=== PATIENT | male | born 1975 | race Caucasian/White ===

== ENCOUNTER 2020-03-17 08:00 | Outpatient (CLI) | payer OTHER ==
[2020-03-17 18:27] LABS: BASOPHILS % (AUTO) 0.5 %; EOSINOPHILS # (AUTO) 0.5 10^3/uL (0.0-0.7); HGB - HEMOGLOBIN 15.4 g/dL (14.0-18.0); LYMPHOCYTES # (AUTO) 2.1 10^3/uL (1.5-3.5); LYMPHOCYTES % (AUTO) 27.7 %; MEAN CORPUSCULAR HEMOGLOBIN 29.6 pg (27.0-31.0); MEAN CORPUSCULAR HGB CONC 31.5 g/dL (32.0-36.0); MEAN PLATELET VOLUME 11.9 fL (7.4-11.4); MONOCYTES # (AUTO) 0.4 10^3/uL (0.0-1.0); MONOCYTES % (AUTO) 5.4 %; NEUTROPHILS # (AUTO) 4.6 10^3/uL (1.5-6.6); PLT - PLATELET COUNT 205 10^3/uL (130-450); RED CELL DISTRIBUTION WIDTH 13.6 % (12.0-15.0); WHITE BLOOD COUNT 7.7 x10^3/uL (4.8-10.8)
[2020-03-17 19:42] LABS: ALBUMIN 4.5 g/dL (3.2-5.5); ALBUMIN/GLOBULIN RATIO 1.3 (1.0-2.2); ALKALINE PHOSPHATASE 76 IU/L (42-121); ALT ALANINE AMINOTRANSFERASE 65 IU/L (10-60); AST ASPARTATE AMINOTRANSFERASE 38 IU/L (10-42); BILIRUBIN,TOTAL 0.6 mg/dL (0.2-1.0); BUN - BLOOD UREA NITROGEN 10 mg/dL (6-20); CALCIUM 9.3 mg/dL (8.5-10.3); CARBON DIOXIDE - CO2 29 mmol/L (21-32); CHLORIDE 101 mmol/L (101-111); CHOL/HDL RATIO 6.2 (<5.0); CHOLESTEROL 234 mg/dL; CREATININE 0.9 mg/dL (0.6-1.2); GLUCOSE 89 mg/dL (70-100); HDL CHOLESTEROL 38 mg/dL; LDL CHOLESTEROL,CALCULATED 151 mg/dL; SODIUM 138 mmol/L (135-145); TOTAL PROTEIN 7.9 g/dL (6.7-8.2); VLDL CHOLESTEROL 45 mg/dL
== END 2020-03-17 23:59 | disposition home or self-care (01) ==
LOC: LAB.WCP 08:00
PROVIDERS: ATTEND Nurse Practitioner Family
DX: E78.5 Hyperlipidemia, unspecified (principal); K21.9 Gastro-esophageal reflux disease without esophagitis; Z83.79 Family history of other diseases of the digestive system
CPT/HCPCS: 36415; 80050; 80061; 83516; 83721

== ENCOUNTER 2020-11-18 09:33 | Outpatient (CLI) | payer OTHER ==
--- NOTE | 2020-11-18 14:57 | XRAY Report ---
PROCEDURE: Chest 2 View X-Ray INDICATIONS: BRONCHITIS TECHNIQUE: 2 view(s) of the chest. COMPARISON: None. FINDINGS: Surgical changes and devices: None. Lungs and pleura: No pleural effusions or pneumothorax. Lungs are clear. Mediastinum: Mediastinal contours are normal. Heart size is normal. Bones and chest wall: No suspicious bony abnormalities. Soft tissues appear unremarkable. IMPRESSION: No acute pulmonary process. Reviewed by: Debbie Bullard MD on 11/18/2020 2:56 PM PDT Approved by: Debbie Bullard MD on 11/18/2020 2:56 PM PDT Station ID: [id number]
== END 2020-11-18 09:34 | disposition home or self-care (01) ==
LOC: DI.N 09:33
PROVIDERS: ATTEND Family Medicine
DX: J40 Bronchitis, not specified as acute or chronic (principal)

== ENCOUNTER 2021-02-25 17:17 | Emergency (ER) | payer OTHER ==
[2021-02-25] MEDS ORDERED: SODIUM CHLORIDE 0.9% 1,000 ML IV STA (17:28)
[2021-02-25] MEDS ORDERED: DEXAMETHASONE 10 MG/ML VIAL IVP STA (17:28)
[2021-02-25] MEDS ORDERED: KETOROLAC 30 MG/ML VIAL IVP STA (17:28)
--- NOTE | 2021-02-25 17:28 | ED Physician Documentation ---
History of Present Illness - Stated complaint Stated Complaint: HEAD/NECK/CHEST PX - History obtained from History obtained from: Patient - Additonal information Additional information: Had pneumonia vaccine 4 days ago on Monday. Since then has developed progressive pain and a sensation of swelling across the right arm where he got the vaccine, the shoulder, neck. He has a headache and generally feels ill with a sore throat as well. No fevers or chills. Has never had a reaction like this to a vaccine before. All of his symptoms are on the right, the side that he had the vaccination. Review of Systems Constitutional: reports: Fatigue. denies: Fever, Chills Nose: denies: Rhinorrhea / runny nose Throat: reports: Sore throat Cardiac: denies: Chest pain / pressure, Palpitations Respiratory: denies: Dyspnea, Cough PD PAST MEDICAL HISTORY - Past Surgical History Past Surgical History: Yes Ortho: ACL reconstruction - Present Medications Home Medications: Ambulatory Orders Medication Instructions Recorded Confirmed Amoxicillin 875 mg PO BID #20 tablet 11/18/12 HYDROcod/ACETAM 5/325 [Vicodin 1 - 2 ea PO Q6H PRN 11/18/12 11/18/12 5/325] Methocarbamol 500 mg PO PRN 11/18/12 11/18/12 Ondansetron Odt [Zofran] 4 mg TL Q6H PRN #10 tablet 11/18/12 oxyCODONE/ACET 5/325 [Percocet 5 1 each PO Q4-6H #14 tablet 11/18/12 mg/325 mg] predniSONE [Deltasone] 60 mg PO DAILY 5 Days #15 tablet 02/25/21 - Allergies Allergies/Adverse Reactions: Allergies Allergy/AdvReac Type Severity Reaction Status Date / Time No Known Drug Allergies Allergy Unverified 02/25/21 17:33 - Social History Does the pt smoke?: Yes Smoking Status: Current every day smoker Does the pt drink ETOH?: Yes Does the pt have substance abuse?: No - Immunizations Immunizations are current?: Yes PD ED PE NORMAL - Vitals Vital signs reviewed: Yes - General General: Alert and oriented X 3, No acute distress - HEENT HEENT: Pharynx benign - Neck Neck: Supple, no meningeal sign, No bony TTP - Derm Derm: No rash - Extremities Extremities: No calf tenderness / cord, Other (Right arm is not swollen, not tender) - Neuro Neuro: Alert and oriented X 3, Normal speech - Psych Psych: Normal mood, Normal affect Results - Vitals Vitals: Vital Signs - 24 hr 02/25/21 17:20 Temperature 36.8 C Heart Rate 96 Respiratory 16 Rate Blood Pressure 128/88 H O2 Saturation 98 Oxygen O2 Source Room air PD MEDICAL DECISION MAKING - ED course ED course: 45-year-old gentleman presents with unilateral symptoms after getting a pneumonia vaccine on that head side. Discussed that he could just do symptomatic treatments at home with NSAIDs but he felt quite miserable so was administered some IV fluids, Decadron, and Toradol with improvement of his symptoms. Departure - Departure Disposition: 01 Home, Self Care Clinical Impression: Vaccine reaction Qualifiers: Encounter type: initial encounter Qualified Code(s): T50.Z95A - Adverse effect of other vaccines and biological substances, initial encounter Condition: Good Record reviewed to determine appropriate education?: Yes Instructions: ED Allergic Reaction Local Other Prescriptions: predniSONE [Deltasone] 60 mg PO DAILY 5 Days #15 tablet Comments: In addition to the steroids you can use ibuprofen or Aleve as needed for your symptoms. Return for new or worsening symptoms. Follow-up with your doctor as needed.
[2021-02-25 18:46] VITALS: BP 114/75
== END 2021-02-25 19:02 | disposition home or self-care (01) ==
LOC: ED 17:17
DX: M79.621 Pain in right upper arm (principal); R51.9 Headache, unspecified; T50.Z95A Adverse effect of other vaccines and biological substances, initial encounter; F17.200 Nicotine dependence, unspecified, uncomplicated
CPT/HCPCS: 96361; 96374; 96375; 99283

== ENCOUNTER 2021-08-26 14:22 | Outpatient (CLI) | payer OTHER ==
[2021-08-26] MEDS ORDERED: GADOBUTROL 15 MMOL/15 ML VIAL ONE (15:17)
[2021-08-26] MEDS ORDERED: GADOBUTROL 15 MMOL/15 ML VIAL IVP ONE (16:23)
--- NOTE | 2021-08-27 12:38 | MRI Report ---
PROCEDURE: Abdomen W/WO INDICATIONS: RENAL MASS CONTRAST: IV CONTRAST: Gadavist ml: 10.6 TECHNIQUE: Coronal ultra fast SE, axial 2D spoiled GE in- and [id number]; axial breath-hold T2 fast SE. Dynam ic axial ultra fast GE during the administration of contrast; post-contrast coronal ultra fast GE or 2D spoiled GE with fat saturation from the hepatic dome to the iliac crests. Restricted diffusion lindsey ghted imaging and ADC. COMPARISON: None available. FINDINGS: Image quality: Fair. Lung bases: No basal pleural effusions. Heart size is normal. Solid organs: Liver and spleen are normal in size. Geographic hepatic steatosis. Right lobe enhancin g focus measuring 0.5 cm, (1001/86). Gallbladder is unremarkable. Biliary system is non dilated. Pa ncreas is normal in morphology. No adrenal nodules. Both kidneys demonstrate normal size, without hydronephrosis. Mid right kidney T2 hyperintense cyst m easuring 3.4 cm. Tiny T2 additional hyperintense renal cysts. Nodes and vessels: No retroperitoneal or mesenteric adenopathy by size criteria. Aorta and inferior vena cava are normal in size. Bowel and peritoneum: Unenhanced bowel loops are normal in caliber. No free fluid. Bones and soft tissues: No ventral hernias. Bone marrow is normal in overall signal. IMPRESSION: 1. No solid renal mass or suspicious enhancement. 2. Benign right renal cyst measuring 3.4 cm. No hydronephrosis. 3. Enhancing focus in the right lobe of liver. This could represent a small hemangioma. 4. Hepatic steatosis. Reviewed by: Kulwinder Young MD on 08/27/2021 12:37 PM PDT Approved by: Kulwinder Young MD on 08/27/2021 12:37 PM PDT Station ID: [id number]
== END 2021-08-26 14:23 | disposition home or self-care (01) ==
LOC: DI 14:22
PROVIDERS: ATTEND Internal Medicine
DX: N28.1 Cyst of kidney, acquired (principal); K76.0 Fatty (change of) liver, not elsewhere classified
CPT/HCPCS: 74183; A9585

== ENCOUNTER 2023-10-12 01:01 | Emergency (ER) | payer OTHER ==
--- NOTE | 2023-10-12 01:17 | ED Physician Documentation ---
PD HPI CHEST PAIN - Stated complaint Stated Complaint: HIGH HR/CHEST PX - Chief complaint Chief Complaint: Cardiac - History obtained from History obtained from: Patient - Additional information Additional information: HPI from patient. Patient was getting ready for bed when he had sudden onset rapid palpitations and chest discomfort across anterior chest. This was at approximately 11:30 PM tonight. He recently turned in an outpatient vehicle monitor technician but does not know results yet. He does not have diagnosis of atrial fibrillation but he indicates his doctor suspects he has this diagnosis. Denies lightheadedness, dyspnea. He has had similar symptoms (as his presenting symptoms) in the past but never this persistent. Review of Systems Cardiac: reports: Chest pain / pressure, Palpitations. denies: Pedal edema, Calf pain Respiratory: reports: Reviewed and negative GI: reports: Reviewed and negative PD PAST MEDICAL HISTORY - Past Medical History Past Medical History: Yes Cardiovascular: Hypertension, High cholesterol, Atrial fibrillation Psych: Depression - Past Surgical History Past Surgical History: Yes Ortho: ACL reconstruction - Present Medications Home Medications: Ambulatory Orders Medication Instructions Recorded Confirmed No Known Home Medications 10/12/23 10/12/23 - Allergies Allergies/Adverse Reactions: Allergies Allergy/AdvReac Type Severity Reaction Status Date / Time No Known Drug Allergies Allergy Verified 10/12/23 01:15 - Social History Does the pt smoke?: Yes Smoking Status: Current every day smoker Does the pt drink ETOH?: Yes Does the pt have substance abuse?: No - Immunizations Immunizations are current?: Yes - POLST Patient has POLST: No PD ED PE NORMAL - Vitals Vital signs reviewed: Yes - General General: Alert and oriented X 3, No acute distress, Well developed/nourished - Respiratory Respiratory: No respiratory distress, Clear bilaterally - Abdomen Abdomen: Soft, Non tender - Extremities Extremities: No edema - Neuro Neuro: Alert and oriented X 3 PD ED PE EXPANDED - Cardiac Cardiac: Tachy, Irregularly irregular Results - Vitals Vitals: Oxygen O2 Source Room air - EKG (time done) #1 EKG releavant findings:: EKG personally interpreted by author of this note. Relevant findings are: Rate: Rate (enter#) (158) Rhythm: Other (rapid narrow complex, suspect 2:1 atrial flutter vs ELIZA) [place]: Normal Ischemia: Normal ST segments #2 EKG releavant findings:: EKG personally interpreted by author of this note. Relevant findings are: Rate: Rate (enter#) (88) Rhythm: NSR [place]: Normal Intervals: Normal [place] QRS: Normal Ischemia: Normal ST segments - Labs Labs: Laboratory Tests 10/12/23 10/12/23 10/12/23 01:21 01:21 01:21 WBC 9.2 RBC 4.93 Hgb 14.9 Hct 43.4 MCV 88.0 MCH 30.2 MCHC 34.3 RDW 13.3 Plt Count 189 MPV 11.5 H Neut # (Auto) 5.3 Lymph # (Auto) 3.0 Schley # (Auto) 0.6 Eos # (Auto) 0.2 Baso # (Auto) 0.0 Absolute Nucleated RBC 0.00 Nucleated RBC % 0.0 Platelet Estimate NORMAL (130-450,000) Platelet Morphology NORMAL APPEARANCE Sodium 140 Potassium 4.4 Chloride 103 Carbon Dioxide 29 Anion Gap 8.0 BUN 15 Creatinine 1.0 Estimated GFR (MDRD) 81 L Glucose 155 H Calcium 10.4 H Total Bilirubin 0.5 AST 46 H ALT 89 H Alkaline Phosphatase 69 Troponin I High Sens 3.6 Total Protein 7.4 Albumin 4.5 Globulin 2.9 Albumin/Globulin Ratio 1.6 Lipase 25 TSH 1.95 - Rads (name of study) chest xray Relevant Findings:: Prelim report reviewed, See rad report PD Medical Decision Making - ED course Complexity details: reviewed results, re-evaluated patient, considered differential, d/w patient ED course: Presents with ELIZA on vehicle monitor technician (EKG not definitively ELIZA but he had a few periods on monitor where the rate slowed just enough to reveal atrial fibrillation as evidenced by irregularly irregular QRS complexes without p waves). As I completed my H+P, ED RN was placing IV and he converted to NSR and stayed in NSR throughout remainder of his stay. His symptoms resolved completely with conversion to NSR. No concerning nor diagnostic findings on CBC, ER abdominal panel (minimally elevated AST, ALT noted). Normal CXR, normal hs-cTn, normal TSH. Diagnosis d/w patient as were results of isidro's tests. Advised to seek follow up with PCP, will likely need further testing for new onset paroxysmal atrial fibrillation. Return precautions reviewed Departure - Departure Disposition: Home, Self Care Clinical Impression: Atrial fibrillation Condition: Good Instructions: ED Afib Comments: When he first arrived to the emergency department tonight, you were in atrial fibrillation with a rapid heart rate. Without specific intervention, you converted to a normal (sinus) heart rhythm and a normal heart rate. There were no concerning nor diagnostic findings on the blood tests, nor on your chest x- ray. Follow up with your primary care provider for reevaluation Forms: PCP List Discharge Date/Time: 10/12/23 03:20
[2023-10-12 01:31] LABS: BASOPHILS % (AUTO) 0.4 %; EOSINOPHILS # (AUTO) 0.2 10^3/uL (0.0-0.7); EOSINOPHILS % (AUTO) 2.5 %; HCT - HEMATOCRIT 43.4 % (42.0-52.0); HGB - HEMOGLOBIN 14.9 g/dL (14.0-18.0); LYMPHOCYTES % (AUTO) 32.7 %; MEAN CORPUSCULAR HEMOGLOBIN 30.2 pg (27.0-31.0); MEAN CORPUSCULAR HGB CONC 34.3 g/dL (32.0-36.0); MEAN PLATELET VOLUME 11.5 fL (7.4-11.4); MONOCYTES # (AUTO) 0.6 10^3/uL (0.0-1.0); MONOCYTES % (AUTO) 6.6 %; NEUTROPHILS # (AUTO) 5.3 10^3/uL (1.5-6.6); NEUTROPHILS % (AUTO) 57.6 %; PLT - PLATELET COUNT 189 10^3/uL (130-450); RED BLOOD COUNT 4.93 10^6/uL (4.70-6.10); RED CELL DISTRIBUTION WIDTH 13.3 % (12.0-15.0); WHITE BLOOD COUNT 9.2 x10^3/uL (4.8-10.8)
--- NOTE | 2023-10-12 01:44 | XRAY Report ---
PROCEDURE: Chest 1V INDICATIONS: Chest pain TECHNIQUE: One view of the chest was acquired. COMPARISON: 11/18/2020 FINDINGS: Surgical changes and devices: None. Lungs and pleura: Lung volumes are low. Mildly prominent interstitium and right perihilar opacity ar e seen. No pleural effusions. Mediastinum: Normal heart size allowing for low lung volumes Bones and chest wall: Unremarkable IMPRESSION: Mildly prominent interstitium and opacification the right perihilar region, representing edema versus infection versus artifact of low lung volumes. Consider future imaging surveillance to assess for r esolution. Limited single view portable study. Reviewed by: Ashutosh Muller MD on 10/12/2023 1:43 AM PDT Approved by: Ashutosh Muller MD on 10/12/2023 1:43 AM PDT Station ID: [id number]
[2023-10-12 01:49] VITALS: O2SAT 94
[2023-10-12 01:57] LABS: TROPONIN I HIGH SENSITIVITY 3.6 ng/L (2.3-19.7)
[2023-10-12 01:58] LABS: PLATELET ESTIMATE, MANUAL NORMAL (130-450,000) (NORMAL); PLATELET MORPHOLOGY NORMAL APPEARANCE (NORMAL)
[2023-10-12 02:04] LABS: ALBUMIN 4.5 g/dL (3.2-5.5); ALBUMIN/GLOBULIN RATIO 1.6 (1.0-2.2); BILIRUBIN,TOTAL 0.5 mg/dL (0.2-1.0); CALCIUM 10.4 mg/dL (8.5-10.3); POTASSIUM 4.4 mmol/L (3.5-4.5); TOTAL PROTEIN 7.4 g/dL (6.4-8.9)
[2023-10-12 03:20] VITALS: BP 103/63
== END 2023-10-12 03:20 | disposition home or self-care (01) ==
LOC: ED 01:01
DX: I48.91 Unspecified atrial fibrillation (principal); I10 Essential (primary) hypertension; E78.00 Pure hypercholesterolemia, unspecified; F17.200 Nicotine dependence, unspecified, uncomplicated
CPT/HCPCS: 36415; 80053; 83690; 84443; 84484; 85025; 93005; 99284

== ENCOUNTER 2023-10-17 02:04 | Outpatient (CLI) | payer OTHER | END 2023-10-17 23:59 | disposition critical access hospital (66) | LOC: EMS 02:04 | DX: I48.91 Unspecified atrial fibrillation (principal); R07.9 Chest pain, unspecified | CPT/HCPCS: A0425; A0427 ==

== ENCOUNTER 2023-10-17 02:24 | Emergency (ER) | payer OTHER ==
--- NOTE | 2023-10-17 02:48 | ED Physician Documentation ---
History of Present Illness - Stated complaint Stated Complaint: HEART PALPITATIONS - Chief complaint Chief Complaint: Cardiac - History obtained from History obtained from: Patient - Additonal information Additional information: The patient comes to the emergency department chief complaint of palpitations. States he just feels a fluttering in his chest. He denies any chest pain or shortness of breath. He does not feel anxious or bad in any other way. The patient is otherwise healthy. He has been under some stress recently. No family history of anybody with MIs or coronary artery disease that they know of in their mid 40s. The patient is not on any new medications. He denies drinking recently. No other complaints at this time. PD PAST MEDICAL HISTORY - Past Medical History Cardiovascular: Hypertension, High cholesterol, Atrial fibrillation Psych: Depression - Past Surgical History Past Surgical History: Yes Ortho: ACL reconstruction - Present Medications Home Medications: Ambulatory Orders Medication Instructions Recorded Confirmed diltiaZEM CD [Cardizem Cd] 240 mg PO DAILY #30 cap 10/17/23 - Allergies Allergies/Adverse Reactions: Allergies Allergy/AdvReac Type Severity Reaction Status Date / Time No Known Drug Allergies Allergy Verified 10/12/23 01:15 - Social History Does the pt smoke?: Yes Smoking Status: Current every day smoker Does the pt drink ETOH?: Yes Does the pt have substance abuse?: No - Immunizations Immunizations are current?: Yes - POLST Patient has POLST: No PD ED PE NORMAL - Vitals Vital signs reviewed: Yes - General General: Alert and oriented X 3, No acute distress, Well developed/nourished - HEENT HEENT: Atraumatic, PERRL, EOMI, Ears normal, Moist mucous membranes - Neck Neck: Supple, no meningeal sign - Cardiac Cardiac: RRR, No murmur - Respiratory Respiratory: No respiratory distress, Clear bilaterally - Abdomen Abdomen: Soft, Non tender, Non distended - Derm Derm: Normal color, Warm and dry, No rash - Extremities Extremities: No deformity, No edema - Neuro Neuro: Other (Grossly intact,) - Psych Psych: Normal mood, Normal affect Results - Vitals Vitals: Oxygen O2 Source Room air - EKG (time done) 0232 EKG releavant findings:: EKG personally interpreted by author of this note. Relevant findings are: Rate: Rate (enter#) (100) Rhythm: Sinus tachycardia [place]: Normal Intervals: Normal [place] QRS: Normal Compare to prior EKG: Old EKG unavailable Computer interpretation: Agree with computer PD Medical Decision Making - ED course Complexity details: reviewed results, re-evaluated patient, considered differential, d/w patient ED course: The patient was worked up with EKG which was unremarkable. He overall looked very good and was only minimally symptomatic, and felt he was stable for discharge home. Departure - Departure Disposition: , Self Care Clinical Impression: Paroxysmal atrial fibrillation with RVR Condition: Stable Instructions: ED Afib Prescriptions: diltiaZEM CD [Cardizem Cd] 240 mg PO DAILY #30 cap Comments: You have converted back into a normal heart rhythm while and route to the emergency department. Your diagnosis is well-established and there is really nothing further to be done in the emergency department. You have been given a dose of the medicine to keep your heart rate under control and to help keep you from going back into A-fib. A prescription for the same has been electronically transmitted to the [facility] pharmacy in [place]. Please be sure to poultry picking machine tender your medicine later today and take the next dose the following morning. You should definitely plan to keep your doctors appointment later this morning so that you can come up with a definitive plan for your outpatient care plus you can get your referral to cardiology. Forms: PCP List Discharge Date/Time: 10/17/23 03:48
[2023-10-17] MEDS: diltiaZEM CD 120 MG CAPSULE PO STA (02:56)
[2023-10-17 03:54] VITALS: BP 153/93; O2SAT 95
== END 2023-10-17 03:48 | disposition home or self-care (01) ==
LOC: EDUNIT# → ED 02:24
DX: I48.0 Paroxysmal atrial fibrillation (principal); I10 Essential (primary) hypertension; E78.00 Pure hypercholesterolemia, unspecified; F17.200 Nicotine dependence, unspecified, uncomplicated
CPT/HCPCS: 93005; 99283; 99284; A9270

== ENCOUNTER 2023-11-14 15:25 | Outpatient (CLI) | payer OTHER ==
[2023-11-14] MEDS: ALBUTEROL 1 PUFF INH STA (17:22)
== END 2023-11-14 15:26 | disposition home or self-care (01) ==
LOC: RT 15:25
PROVIDERS: ATTEND Physician Assistant
DX: R05.9 Cough, unspecified (principal); R06.2 Wheezing
CPT/HCPCS: 94060; 94727; 94729

== ENCOUNTER 2023-12-15 15:27 | Outpatient (CLI) | payer OTHER ==
--- NOTE | 2023-12-15 16:02 | Sleep Patient Instructions ---
Sleep Center Visit Summary - Patient Visit Information Reason for Visit: Initial consult for evaluation of sleep disordered breathing and other sleep issues. - Patient Instructions Additional Instructions: You will be completing a sleep study, either an in-lab polysomnography (PSG) or home sleep study (HST). You will follow-up in the sleep care office after the sleep study is completed to hear the results and talk about therapy, if needed. You will be called by our office staff to schedule this appointment, but you may contact us with any questions. - Clinic Information Contact: [facility] [address] [place] [id number] [email or web address] T: [phone]
[2023-12-15 16:05] VITALS: BP 155/86; O2SAT 99
--- NOTE | 2023-12-15 16:05 | SLEEP CARE CONSULTATION ---
Information from patient questionnaire entered by Indu Jameson. I have reviewed and concur with the information entered by Indu Jameson. This document represents the service I personally performed and the decisions made by me, Darlene Hernandez ARNP. History of Present Illness Service Date and Time: 12/15/2023 1527 Reason for Visit: New patient, Previously diagnosed sleep apnea Chief Complaint: reports: Insomnia, Unrefreshed sleep, Snoring, Excessive daytime sleepiness, Observed pauses in breathing, Fatigue, Frequent awakenings at night Date of Onset: YRS Usual bedtime: 2230 Time it takes to fall asleep: 3.5 hours on average Snores at night: Yes Observed to quit breathing while asleep: Yes Sleeps alone due to snoring: No Number of times waking at night: MANY Reasons for waking at night: reports: Choking, Snoring, Gasping for air, Pain, Bathroom, Other (NOISE) Toss, Turn, or Twitch while sleeping: Yes Recalls having dreams: Yes Usually gets out of bed at: 9966-1609 Feels refreshed in the morning: No Morning headache: Yes (5 times a week, last until moving around) Sleepy or fatigued during the day: Yes Ever fallen asleep while driving: Yes (drowsy driving, no accidents) Takes day naps: Yes (daily, for 30 minutes to 2 hours, depends) Dreams during day naps: No Prior sleep studies: Yes Year and Where: 2011-? [facility], [facility]; [place] [facility] ? Additional HPI information: I had the pleasure of seeing IJEOMA COWAN today regarding the possibility of him having a sleep disorder. His current complaints are excessive daytime sle epiness, fatigue, insomnia, frequent night awakenings, observed pauses in breathing, snoring and unrefreshed sleep. He was previously diagnosed with sleep apnea and was placed on a CPAP that is a Mikey machine. He stopped using it when he heard about the cancer risk. He is back because he cannot sleep well and his snoring is bad. His is concerned about the times he is stopping breathing when sleeping. He is not able to go to sleep for 3 hours nightly and will wake up frequently after initially falling asleep. He does not wake up feeling rested. He will wake up with headaches about 5 times a week that resolves once he gets up and around for the day. He will take a nap daily. - Parasomnia Symptoms Ever been unable to move upon waking from sleep: Yes Walks in sleep: No (may have when a child, not sure now) Talks in sleep: Yes Ever acted out dreams in sleep: Yes (accidentally hit in sleep, not often) Ever felt weak in the knees when startled or emotional: No Bothered by creepy, crawly, restless sensations in legs: Yes (legs always "bounce") Problems with memory or concentration: Yes (both) Subjective Initial [place] Sleepiness Scale score: 15 (12/15/23) Past Medical History Past Medical History: reports: Arrythmia, Anxiety, GERD Social History The patient's occupation is a RE. Patient is and lives in . Have you smoked in the past 12 months: No Years of smokin Quit date: 2019 Alcohol use: Yes Alcohol amount and frequency: 0-1 PRN Caffeine use: Yes Caffeine amount and frequency: 2-3 DAILY Family History Family history of sleep disordered breathing: Yes Family Hx Sleep Apnea: Father: Snoring, Sibling: Snoring, Grandparent: Snoring Allergies and Home Medications Known drug allergies: No Drug allergies reviewed: Yes Home medication list reviewed: Yes (as listed) Allergy and home medication list: Allergies pneumococcal vaccine Allergy (Verified 12/15/23 15:56) Anaphylaxis Home Medications No Known Home Medications 12/15/23 [History] Review of Systems Weight gain over past 5 years: 25 Weight loss over past 5 years: 15 Cardiovascular: reports: palpitations, chest pain, irregular heart rate or pulse, leg or foot swelling Respiratory: reports: shortness of breath, sputum production Gastrointestinal: reports: heartburn, vomitting Neurological: reports: headaches, fainting or unconsciousness Ear/Nose/Throat: reports: nasal congestion, sinus problems, dry mouth/throat, wisdom teeth removed. denies: tonsillectomy Endocrine: reports: sluggishness Musculoskeletal: reports: joint pain, neck pain Physical Exam Vital signs obtained and entered by: INDU Caldera MA Blood Pressure: 155/86 (LEFT RM) Cuff size: long Heart Rate: 84 O2 Saturation: 99 Height: 5 ft 8 in Weight: 247 lb 11.2 oz Body Mass Index: 37.6 BMI Classification: Obese Neck circumference: 17.5 Mouth and throat: narrow oropharynx Soft palate: long Hard palate: normal Uvula: normal Uvula visualization: 0% Mallampati Class IV Tongue: enlarged in size with teeth shah on lateral edges Tonsils: small Neck: normal w/o lymphadenopathy or thyromegaly Heart: regular rate and rhythm Lungs: clear bilaterally Impression and Plan 1. Suspected Obstructive Sleep Apnea-Hypopnea Syndrome, as previously diagnosed and as suggested by a history of loud and irregular snoring, observed cessation of breath while asleep, gasping or choking in sleep, morning headache, frequent awakening during the night, unrefreshed sleep, cognitive impairment, and excessive daytime sleepiness. Narrow oropharynx and obesity are common predisposing factors for obstructive sleep apnea-hypopnea syndrome. I recommend proceeding to polysomnography to confirm the diagnosis and to assess severity. If the patient has significant sleep disordered breathing, a manual CPAP titration study will also be performed to find the optimal treatment pressure. I informed the patient of what the sleep studies involve and after some discussion, obtained agreement to proceed. The pathophysiology of obstructive sleep apnea-hypopnea syndrome was discussed with the patient and health risks of cardiovascular and cerebrovascular disease if not treated. Risks of drowsy driving discussed in detail and patient advised to avoid long distance driving and to nail puller at the first sign of drowsiness. Patient agreed to plan. * Schedule polysomnography +- manual CPAP titration study and return in 1-2 weeks after the study to discuss result and initiate therapy. * Avoid long distance driving or driving when feeling sleepy. * Avoid alcohol, sedative and muscle relaxant around bedtime. * Attempt to lose weight. * Review instructions provided by trained office staff on how to prepare for the sleep study. * Return for follow-up after sleep study completed. Counseling Topics: Weight loss health impact Plan: PSG/HST and followup Visit Type: In Office Time Spent with Patient (minutes): 30 Provider Statement: I spent 100% of the Face to Face Visit with the patient with greater than 50% spent counseling the patient and coordination of care.
== END 2023-12-15 15:28 | disposition home or self-care (01) ==
LOC: SC 15:27
PROVIDERS: ATTEND Nurse Practitioner Family
DX: G47.33 Obstructive sleep apnea (adult) (pediatric) (principal); E66.9 Obesity, unspecified; Z68.37 Body mass index [BMI] 37.0-37.9, adult; Z87.891 Personal history of nicotine dependence
CPT/HCPCS: 99203; 99212

== ENCOUNTER 2024-01-12 20:37 | Outpatient (CLI) | payer OTHER | END 2024-01-12 20:38 | disposition home or self-care (01) | LOC: SC 20:37 | PROVIDERS: ATTEND Nurse Practitioner Family | DX: G47.33 Obstructive sleep apnea (adult) (pediatric) (principal); E66.9 Obesity, unspecified; Z68.37 Body mass index [BMI] 37.0-37.9, adult | CPT/HCPCS: 95810 ==

== ENCOUNTER 2024-01-29 12:19 | Outpatient (CLI) | payer OTHER ==
--- NOTE | 2024-01-30 21:45 | SLEEP CARE CONSULTATION ---
Information from patient questionnaire entered by John Pacheco. I have reviewed and concur with the information entered by John Pacheco. This document represents the service I personally performed and the decisions made by me, Veronika Brandt MD, [facility]. History of Present Illness Service Date and Time: 01/29/2024 1219 Initial [place] Sleepiness Scale score: 15 (12/15/23) Current [place] Sleepiness Scale score: 14 (01/29/24) Additional HPI information: HPI: Mr. Barbosa was seen today via video telemedicine ([email or web address]) for a follow up of the sleep study he had on 01/12/24. The polysomnography showed that the patient had minimally reduced sleep efficiency. The sleep architecture was relatively normal considering the first-night effect. Respiratory monitoring showed mild obstructive sleep apnea-hypopnea (AHI = 12.5) associated with oxyhemoglobin desaturation and mild hypoxia (nena oxygen saturation of 82%) but not sleep fragmentation. Respiratory events occurred most frequently during supine sleep (supine AHI = 90.0; non-supine = 11.22). Snore was light to loud in intensity. There was no significant periodic leg movement of sleep. Cardiac r hythm was normal sinus rhythm without significant arrhythmia. No abnormal behavior (parasomnia) observed during the night. The patient was informed of these findings. I explained to him the pathophy siology behind obstructive sleep apnea. We then spent quite a bit of time discussing different treatment options. For mild obstructive sleep apnea, surgery and oral appliance are alternatives to nasal CPAP therapy but in moderate or severe cases, nasal CPAP is the most effective and reliable treatment. Weight loss in an obese individual is strongly recommended. After some discussion, he opted to use a CPAP again. He was originally diagnosed with the sleep-related breathing disorder in 2013 in [place]. She used a [employer] until it was recalled 4 years ago. He wore a nasal mask. He recalls tremendous improvement on the treatment. He does not remember what pressure was set on his old machine. Sleep Study - Results Type of Sleep Study: Polysomnography Prior sleep studies: Yes Year and Where: 2011-? [facility], [facility]; [place] [facility] 2017-? Allergies and Home Medications Drug allergies reviewed: Yes Home medication list reviewed: Yes Allergy and home medication list: Allergies pneumococcal vaccine Allergy (Verified 12/15/23 15:56) Anaphylaxis Review of Systems Review of systems same as previous: Yes Physical Exam Vital signs obtained and entered by: N/A Height: 5 ft 8 in Weight: 247 lb 15.968 oz Body Mass Index: 37.7 BMI Classification: Obese Impression and Plan IMPRESSION: 1. Obstructive Sleep Apnea-Hypopnea Syndrome, mild, associated with mild hypoxemia. Possibly, this is the cause of the patients symptoms of unrefreshed sleep, and excessive daytime sleepiness. As mentioned above, the patient will return for a manual CPAP/BiPAP titration study. PLAN: 1. Schedule a manual CPAP/BiPAP titration study. 2. Try to lose weight. 3. Return for follow up after the sleep study. Counseling Topics: Weight control Follow up with Sleep Care in: 1-2 months Plan: Titration study Visit Type: Telehealth Video Video Type: [place] Patient Location: Home Patient agrees and consents to this telehealth visit type: Yes Patient agrees to have their insurance billed: Yes Time Spent with Patient (minutes): 15 Provider Statement: I spent 100% of the Telehealth Video Call with the patient with greater than 50% spent counseling the patient and coordination of care.
== END 2024-01-29 12:20 | disposition home or self-care (01) ==
LOC: SC 12:19
PROVIDERS: ATTEND Internal Medicine Pulmonary Disease
DX: G47.33 Obstructive sleep apnea (adult) (pediatric) (principal); E66.9 Obesity, unspecified; Z68.37 Body mass index [BMI] 37.0-37.9, adult

== ENCOUNTER 2024-01-30 15:06 | Outpatient (CLI) | payer OTHER | END 2024-01-30 15:07 | disposition home or self-care (01) | LOC: DI 15:06 | PROVIDERS: ATTEND Physician Assistant | DX: I48.0 Paroxysmal atrial fibrillation (principal) | CPT/HCPCS: 93307 ==